=== PATIENT | male | born 1960 ===

== ENCOUNTER 2017-05-02 06:18 | Emergency (ER) | payer MEDICAID, OTHER ==
[2017-05-02 06:19] VITALS: BMI 34.7
[2017-05-02 06:26] VITALS: RESP 20; TEMP 98.3
[2017-05-02] MEDS ORDERED: Tmp-Smz 800 mg-160 mg DS Tab PO STA (07:24)
[2017-05-02] MEDS ORDERED: Naproxen 550 mg Tab PO STA (07:25)
--- NOTE | 2017-05-02 07:27 | C.PDOC ---
History Of Present Illness 57 y/o male c/o swelling and pain to right inner thigh for 2 days. Patient states when he got here today, the area opened and started draining. He denies any injuries, fever, testicular/abdominal pain. Time Seen by Provider: 05/02/17 07:18 Chief Complaint (Nursing): Abnormal Skin Integrity History Per: Patient History/Exam Limitations: no limitations Onset/Duration Of Symptoms: Days Current Symptoms Are (Timing): Still Present Location Of Injury: Right: Leg Quality Of Symptoms: Painful, Draining Severity: Moderate Past Medical History Reviewed: Historical Data, Nursing Documentation, Vital Signs Vital Signs: Last Vital Signs Temp 98.3 F 05/02/17 06:20 Pulse 78 05/02/17 07:58 Resp 20 05/02/17 07:58 BP 128/84 05/02/17 07:58 Pulse Ox 96 05/03/17 18:12 - Medical History PMH: Asthma, Gastritis, HTN, Hypercholesterolemia, Hypothyroidism Surgical History: Endoscopy - [facility] Procedures ANESTH INJEC PERIPH NERV (03/27/14) CLOSED ENDOSCOPIC BIOPSY OF LARGE INTESTINE (01/19/14) ESOPHAGOGASTRODUODENOSCOPY [EGD] W/CLOSED BIOPSY (01/19/14) FASCIOTOMY (03/27/14) OTHER SKIN & SUBQ I D (04/09/13) SOFT TISSUE INJECT NEC (03/27/14) Family History: States: No Known Family Hx - Social History Hx Tobacco Use: Yes Hx Alcohol Use: Yes Hx Substance Use: No - Immunization History Hx Tetanus Toxoid Vaccination: No Hx Influenza Vaccination: Yes Hx Pneumococcal Vaccination: No Review Of Systems Except As Marked, All Systems Reviewed And Found Negative. Constitutional: Negative for: Fever, Chills Cardiovascular: Negative for: Chest Pain Respiratory: Negative for: Cough, Shortness of Breath Gastrointestinal: Negative for: Nausea, Vomiting Musculoskeletal: Positive for: Leg Pain (right medial thigh ) Skin: Positive for: Other (right medial thigh swelling, drainage). Negative for : Rash Physical Exam - Physical Exam Appears: Non-toxic, Other (in mild pain) Skin: Normal Color, Warm, Dry Oral Mucosa: Moist Cardiovascular: Rhythm Regular Respiratory: Normal Breath Sounds, No Rales, No Rhonchi, No Wheezing Gastrointestinal/Abdominal: Normal Exam, Bowel Sounds, Soft, No Tenderness, No Guarding, No Rebound Extremity: Normal ROM, Capillary Refill (< 2 sec all digits), Other (R medial/ proximal thigh: 3.0 cm area of induration, with 2 central draining pustules, and 3 cm surrounding area of erythema. No fluctuance. ) Neurological/Psych: Oriented x3 ED Course And Treatment O2 Sat by Pulse Oximetry: 96 (RA) Pulse Ox Interpretation: Normal Progress Note: Patient given PO Naprosyn, Keflex and Bactrim. Wound culture obtained by ED nurse. No need for I&D at this time since wound is already draining, and is primarily indurated. Patient given rxs for Bactrim/Keflex/ Naprosyn and instructed to apply warm compresses to area. Patient to follow up with PMD/clinic in 1-2 days. He understands he should return to ED if symptoms worsen. Reevaluation Time: 07:35 Reassessment Condition: Improved Disposition Counseled Patient/Family Regarding: Diagnosis, Need For Followup, Rx Given - Disposition Referrals: Sindy Parham MD [Medical Doctor] - Disposition: HOME/ ROUTINE Disposition Time: 07:35 Condition: STABLE Additional Instructions: FOLLOW UP WITH YOUR DOCTOR IN 1-2 DAYS USE MEDICATIONS DIRECTED APPLY WARM COMPRESSES TO AREA SEVERAL TIMES A DAY RETURN TO ER IF SYMPTOMS WORSEN Prescriptions: Cephalexin [Keflex] 500 mg PO BID #14 capsule Naproxen [Naprosyn Tab] 375 mg PO BID PRN #20 tab PRN Reason: pain Sulfamethoxazole/Trimethoprim [Bactrim DS 800 mg-160 mg] 1 tab PO BID #14 tab Instructions: Abscess (ED) Print Language: ESTONIAN - POA Present On Arrival: None - Clinical Impression Clinical Impression: Abscess of right thigh - Scribe Statement The provider has reviewed the documentation as recorded by the Brady Gutierrez Provider Attestation: All medical record entries made by the Brady were at my direction and personally dictated by me. I have reviewed the chart and agree that the record accurately reflects my personal performance of the history, physical exam, medical decision making, and the department course for this patient. I have also personally directed, reviewed, and agree with the discharge instructions and disposition.
[2017-05-02] MEDS ORDERED: Tmp-Smz 800 mg-160 mg DS Tab ONE (07:39)
[2017-05-02] MEDS ORDERED: Naproxen 550 mg Tab PO ONE (07:40)
[2017-05-02 07:59] VITALS: BP 128/84; PULSE 78
[2017-05-02 08:07] VITALS: O2SAT 96
== END 2017-05-02 08:05 | disposition home or self-care (01) ==
LOC: C.ER 06:18
DX: L02.415 Cutaneous abscess of right lower limb (principal)

== ENCOUNTER 2018-07-13 14:15 | Emergency (ER) | payer OTHER ==
[2018-07-13 14:19] VITALS: BMI 33.3
[2018-07-13 14:23] VITALS: BP 167/104; PULSE 95; RESP 18; TEMP 98.7; O2SAT 97
--- NOTE | 2018-07-13 15:04 | C.PDOC ---
History Of Present Illness 58 year old male, with possible HTN, presents to the emergency department with complaints of pain and swelling to his right knee for the past few days. Patient states he has recently moved and lifted heavy objects. He recalls no particular trauma and did not fall. Patient denies fever, nausea, vomiting, weakness, or numbness. Time Seen by Provider: 07/13/18 14:25 Chief Complaint (Nursing): Lower Extremity Problem/Injury History Per: Patient History/Exam Limitations: no limitations Onset/Duration Of Symptoms: Days Current Symptoms Are (Timing): Still Present Past Medical History Reviewed: Historical Data, Nursing Documentation, Vital Signs Vital Signs: Last Vital Signs Temp 98.7 F 07/13/18 14:34 Pulse 95 H 07/13/18 14:34 Resp 18 07/13/18 14:34 BP 167/104 H 07/13/18 14:34 Pulse Ox 97 07/13/18 22:08 - Medical History PMH: Asthma, Gastritis, HTN, Hypercholesterolemia, Hypothyroidism Denies: Depression, Chronic Kidney Disease Surgical History: Endoscopy - [facility] Procedures ANESTH INJEC PERIPH NERV (03/27/14) CLOSED ENDOSCOPIC BIOPSY OF LARGE INTESTINE (01/19/14) ESOPHAGOGASTRODUODENOSCOPY [EGD] W/CLOSED BIOPSY (01/19/14) FASCIOTOMY (03/27/14) OTHER SKIN & SUBQ I D (04/09/13) SOFT TISSUE INJECT NEC (03/27/14) Family History: States: No Known Family Hx - Social History Hx Tobacco Use: Yes Hx Alcohol Use: Yes Hx Substance Use: No - Immunization History Hx Tetanus Toxoid Vaccination: No Hx Influenza Vaccination: Yes Hx Pneumococcal Vaccination: No Review Of Systems Constitutional: Negative for: Fever Cardiovascular: Negative for: Chest Pain Respiratory: Negative for: Shortness of Breath Gastrointestinal: Negative for: Nausea, Vomiting Musculoskeletal: Positive for: Other (knee pain right) Neurological: Negative for: Weakness, Numbness Physical Exam - Physical Exam Appears: Non-toxic, No Acute Distress Skin: Warm, Dry Head: Atraumatic, Normacephalic Eye(s): bilateral: Normal Inspection Oral Mucosa: Moist Extremity: Tenderness (in medial aspect of R knee), No Pedal Edema, No Calf Tenderness, Swelling (of R knee, not erythematous nor warm), Other ( Suprapatellar effusion on medial aspect of R knee; limited ROM) Extremity: Right: Other (Sensation and strength of R knee intact), Bilateral: Atraumatic, No Pedal Edema, Normal Color And Temperature Pulses: Left Dorsalis Pedis: Normal, Right Dorsalis Pedis: Normal Neurological/Psych: Oriented x3, Normal Speech, Normal Cognition, Normal Motor, Normal Sensation ED Course And Treatment O2 Sat by Pulse Oximetry: 97 (RA) Pulse Ox Interpretation: Normal Medical Decision Making Medical Decision Making: Impression: Right Knee Pain Plan: Toradol Placed bandage and cold compress on patients knee. Discussed with patient that there was no need for x-ray and recommended orthopedic outpatient follow up. Patient was found to be hypertensive; reports he is non compliant with htn medications for long time. Advised to follow up with PMD and be re-evaluated for need for htn med due to risk of stroke. 1523 pt feeling better after compression winsome bandage and toradol, d/c home, fu pmd and ortho Disposition Counseled Patient/Family Regarding: Diagnosis, Need For Followup, Rx Given - Disposition Referrals: [facility] at [facility] [Outside] Timothy Chu III, MD [Staff Provider] - Disposition: HOME/ ROUTINE Disposition Time: 15:24 Condition: GOOD Additional Instructions: Please wear winsome bandage to help with swelling and pain. Cold compresses 4 times a day. Take naproxen as prescrbied, with food. Follow up with medical doctor or in clinic fo annual evaluaiton and with Dr Chu (orthopedist) if knee pain persists. Prescriptions: Naproxen 500 mg PO BID #20 tab Instructions: Knee Pain (DC) Forms: [facility] (Bengali), General Discharge Instructions - Clinical Impression Clinical Impression: Right medial knee pain, Knee effusion, right - PA / PUBLIC ADMINISTRATION PROFESSOR / Resident Statement MD/DO has reviewed & agrees with the documentation as recorded. - Scribe Statement The provider has reviewed the documentation as recorded by the Darwiniblenny Romero All medical record entries made by the Darwiniblenny were at my direction and personally dictated by me. I have reviewed the chart and agree that the record accurately reflects my personal performance of the history, physical exam, medical decision making, and the department course for this patient. I have also personally directed, reviewed, and agree with the discharge instructions and disposition.
== END 2018-07-13 15:31 | disposition home or self-care (01) ==
LOC: C.ER 14:15
DX: M25.461 Effusion, right knee (principal); M25.561 Pain in right knee; E78.00 Pure hypercholesterolemia, unspecified; I10 Essential (primary) hypertension; E03.9 Hypothyroidism, unspecified; Z72.0 Tobacco use
CPT/HCPCS: 96372; 99285; J1885

== ENCOUNTER 2018-07-14 10:49 | Emergency (ER) | payer OTHER ==
[2018-07-14 10:49] VITALS: BMI 33.3
[2018-07-14 10:57] VITALS: RESP 18
--- NOTE | 2018-07-14 11:54 | C.PDOC ---
History Of Present Illness 58 year old male presents to the emergency department with complaints of a mild frontal headache. Patient states that he has a history of HTN for which he is prescribed Zestril 10mg but he has been non-compliant for the last two years. Patient denies chest pain, shortness of breath, dizziness, visual changes, or sensory/extremity weakness. Time Seen by Provider: 07/14/18 10:51 Chief Complaint (Nursing): High Blood Pressure History Per: Patient History/Exam Limitations: no limitations Onset/Duration Of Symptoms: Hrs Current Symptoms Are (Timing): Still Present Associated Symptoms: Headache (frontal). denies: Chest Pain, Dyspnea, Dizziness , Blurred Vision, Focal Weakness Exacerbating Factor(s): Pos: Recently Missed Doses Of Medication Past Medical History Reviewed: Historical Data, Nursing Documentation, Vital Signs Vital Signs: Last Vital Signs Temp 98.6 F 07/14/18 12:17 Pulse 72 07/14/18 12:17 Resp 18 07/14/18 12:17 BP 140/93 H 07/14/18 12:17 Pulse Ox 98 07/14/18 12:17 - Medical History PMH: Asthma, Gastritis, HTN, Hypercholesterolemia, Hypothyroidism Denies: Depression, Chronic Kidney Disease Surgical History: Endoscopy - [facility] Procedures ANESTH INJEC PERIPH NERV (03/27/14) CLOSED ENDOSCOPIC BIOPSY OF LARGE INTESTINE (01/19/14) ESOPHAGOGASTRODUODENOSCOPY [EGD] W/CLOSED BIOPSY (01/19/14) FASCIOTOMY (03/27/14) OTHER SKIN & SUBQ I D (04/09/13) SOFT TISSUE INJECT NEC (03/27/14) Family History: States: No Known Family Hx - Social History Hx Tobacco Use: Yes Hx Alcohol Use: Yes Hx Substance Use: No - Immunization History Hx Tetanus Toxoid Vaccination: No Hx Influenza Vaccination: No Hx Pneumococcal Vaccination: No Review Of Systems Except As Marked, All Systems Reviewed And Found Negative. Eyes: Negative for: Vision Change Cardiovascular: Negative for: Chest Pain Respiratory: Negative for: Shortness of Breath Neurological: Positive for: Headache. Negative for: Dizziness Physical Exam - Physical Exam Appears: Non-toxic, No Acute Distress (comfortable) Skin: Warm, Dry Head: Atraumatic, Normacephalic Eye(s): bilateral: Normal Inspection, PERRL, EOMI Neck: Normal, Supple Chest: Symmetrical Cardiovascular: Rhythm Regular, No Murmur Respiratory: Normal Breath Sounds, No Rales, No Rhonchi, No Wheezing Extremity: Normal ROM (all extremities) Neurological/Psych: Oriented x3, Normal Speech, Normal Cognition, Normal Cranial Nerves, Normal Motor, Normal Sensation, Other (no focal weaknesses, ambulating without difficulties) ED Course And Treatment O2 Sat by Pulse Oximetry: 97 (RA) Pulse Ox Interpretation: Normal Progress Note: Plan: Zestril 10mg PO given in the ED as well as prescription. Patient reported feeling better and was discharged home. Disposition Counseled Patient/Family Regarding: Studies Performed, Diagnosis, Need For Followup, Rx Given - Disposition Referrals: Sindy Parham MD [Medical Doctor] - Disposition: HOME/ ROUTINE Disposition Time: 12:00 Condition: STABLE Additional Instructions: FOLLOW UP WITH YOUR DOCTOR IN 1-2 DAYS USE BLOOD PRESSURE MEDICATION DAILY RETURN TO ER IF YOUR SYMPTOMS WORSEN Prescriptions: Lisinopril [Zestril] 10 mg PO DAILY #30 tab NS Instructions: High Blood Pressure (DC) Forms: [facility] (Thai) Print Language: AZERI - Clinical Impression Clinical Impression: Mild headache, Hypertension, Noncompliance with medication regimen - Scribe Statement The provider has reviewed the documentation as recorded by the Scribe (Robert Corey) Provider Attestation: All medical record entries made by the Scribe were at my direction and personally dictated by me. I have reviewed the chart and agree that the record accurately reflects my personal performance of the history, physical exam, medical decision making, and the department course for this patient. I have also personally directed, reviewed, and agree with the discharge instructions and disposition.
[2018-07-14 12:25] VITALS: BP 140/93; PULSE 72; TEMP 98.6
[2018-07-14 14:56] VITALS: O2SAT 97
== END 2018-07-14 12:18 | disposition home or self-care (01) ==
LOC: C.ER 10:49
DX: I10 Essential (primary) hypertension (principal); R51 Headache; Z91.14 Patient's other noncompliance with medication regimen